=== PATIENT | female | born 2000 | race Caucasian/White ===

== ENCOUNTER → 2021-06-23 | Outpatient (CLI) | payer OTHER ==
[~2021-06-23] MED LIST: Bactrim Ds Tab1 EACH PO; HYOS.125 SL; MORGIDOX100 MG PO; NAPR375 PO; Prilosec Otc20 MG PO; Pyridium200 MG PO; Zofran Odt4 MG PO
[2021-06-24 12:52] LABS: Candida species (DNA Probe) Negative (NEGATIVE); G. vaginalis (DNA Probe) Negative (NEGATIVE); T. vaginalis (DNA Probe) Negative (NEGATIVE)
[2021-06-24 22:10] LABS: CHLAMYDIA TRACHOMATIS, NAA Negative (Negative)
== END ==
LOC: LAB SHORT 12:09
PROVIDERS: Family Medicine
DX: N89.8 Other specified noninflammatory disorders of vagina (principal); R31.9 Hematuria, unspecified
CPT/HCPCS: 87086; 87480; 87491; 87510; 87591; 87660

== ENCOUNTER → 2021-07-10 | Outpatient (CLI) | payer OTHER | END | disposition home or self-care (01) | LOC: LAB 17:55 → LAB SHORT 17:55 | PROVIDERS: Family Medicine | DX: Z12.4 Encounter for screening for malignant neoplasm of cervix (principal) | CPT/HCPCS: G0123 ==

== ENCOUNTER → 2021-12-13 | Outpatient (CLI) | payer OTHER ==
[2021-12-14 10:15] LABS: Candida species (DNA Probe) Negative (NEGATIVE); G. vaginalis (DNA Probe) Negative (NEGATIVE); T. vaginalis (DNA Probe) Negative (NEGATIVE)
== END | disposition home or self-care (01) ==
LOC: LAB SHORT 13:16 → LAB 13:16
PROVIDERS: Family Medicine
DX: N89.8 Other specified noninflammatory disorders of vagina (principal)
CPT/HCPCS: 87480; 87510; 87660

== ENCOUNTER → 2022-04-05 | Outpatient (CLI) | payer OTHER | END | disposition home or self-care (01) | LOC: LAB 12:00 → LAB SHORT 12:00 | DX: R30.0 Dysuria (principal) | CPT/HCPCS: 87086 ==

== ENCOUNTER 2024-03-04 04:38 | Day surgery (SDC) | payer OTHER ==
[2024-03-04] MEDS ORDERED: Sod Ferric Gluc Complx/Sucrose 125 MG in NS 100 ML IV SCH (06:00)
[2024-03-04 14:48] VITALS: BP 129/80
[2024-03-04 15:04] VITALS: BP 115/97
[2024-03-04 15:20] VITALS: BP 120/77
[2024-03-04 15:27] VITALS: BP 118/80
[2024-03-04 15:45] VITALS: BP 115/80; BP 118/80
[2024-03-04] MEDS ORDERED: MULVITA PO (16:02)
[2024-03-04] MEDS ORDERED: Acetaminophen650 M1 PO (16:02)
[2024-03-04] MEDS ORDERED: DOCU100 PO (16:02)
--- NOTE | 2024-03-04 16:46 | NUR ---
PT ARRIVED TO [facility] ROOM 1 AT 1448. IV PLACED AT 1500 AFTER A LONG PROCESS OF SEARCHING FOR THE PERFECT VEIN. IV ACCESS TOOK ONLY 1 ATTEMPT AND IRON INFUSION BEGAN. WITHIN MINUTES PT BEGAN TO FEEL LIGHTHEADED AND APPEARED MILDLY PALE. PT RECLINED BACK, VITALS CHECKED, COLD WASHCLOTH AND FAN PLACED ON PT, AND IRON PAUSED. AFTER 10 MIN. PT REPORTED FEELING BETTER. PT APPEARED TO LOOK BETTER. INITIAL THOUGHT WAS THAT SHE HAD A MILD VASOVAGAL EVENT FROM THE IV START, BUT WE WOULD MONITOR FOR A POSSIBLE MEDICATION REACTION WE RESTARTED HER IRON. IRON RESTARTED AND AFTER 5-10 MIN PT REPORTED THE RETURN OF SYMPTOMS. PT REPORTED HER CHEST FELT TIGHT, SHE WAS NAUSEOUS, AND SHE FELT DIZZY. IRON STOPPED AND DR WASHINGTON NOTIFIED AT 1527 REGARDING THE SITUATION. ORDER GIVEN TO D/C IRON, MONITOR PT FOR 15-20 MORE MINUTES AND THEN SEND HOME IF SHE'S FEELING BETTER. AT 1545 VITALS CHECK AND REMAIN AT BASELINE. PT REPORTS FEELING WELL AND ABLE TO GO HOME. PT IS GOING TO FOLLOW UP WITH MD TO DISCUSS ALTERNATIVE IRON OPTIONS OR THE NEED FOR PREMEDICATIONS FOR IRON INFUSIONS.
== END 2024-03-04 15:45 | disposition home or self-care (01) ==
LOC: ATC 04:38
DX: E61.1 Iron deficiency (principal); K59.09 Other constipation; Z88.0 Allergy status to penicillin
CPT/HCPCS: 96365; J2916

== ENCOUNTER → 2024-04-16 | Outpatient (CLI) | payer OTHER ==
[~2024-04-16] MED LIST changes: +Acetaminophen650 M1 PO; +DOCU100 PO; +MULVITA PO
== END ==
LOC: LAB 15:41 → LAB SHORT 15:41
DX: R14.0 Abdominal distension (gaseous) (principal)
CPT/HCPCS: 87338

== ENCOUNTER → 2025-02-09 | Outpatient (CLI) | payer OTHER ==
[2025-02-10 11:16] LABS: Bacterial Vaginosis PCR Negative (NEGATIVE); Candida Group, PCR NOT DETECTED (NOT DETECT); Candida glabrata-krusei, PCR NOT DETECTED (NOT DETECT)
[2025-02-12 00:18] LABS: APTIMA MEDIA TYPE Unisex Swab; C. TRACHOMATIS BY TMA Negative (Negative); N. GONORRHOEAE BY TMA Negative (Negative)
== END ==
LOC: LAB 19:37 → LAB SHORT 19:37
PROVIDERS: Family Medicine
DX: R30.0 Dysuria (principal); Z12.4 Encounter for screening for malignant neoplasm of cervix
CPT/HCPCS: 81515; 87070; 87086; 87205; 87491; 87591; 87624; G0145